=== PATIENT | male | born 1965 | race Caucasian/White ===

== ENCOUNTER 2017-01-01 16:27 | Inpatient (IN) | payer MEDICARE, OTHER ==
[~2017-01-01] VITALS: Ht 177.8 cm; Wt 72.6 kg
--- NOTE | 2017-01-02 19:00 | NUR ---
Admitted patient from [facility] with dx: right ankle pain, sepsis. Patient in a stable condition, with no s/s of distress. Respirations even and unlabored, alert/oriented x 4, able to make needs known. Manifests a pleasant disposition. No complaints of pain at this time. Call light within reach. Kept in a comfortable position. Snacks offered as patient verbalized feeling hungry. Will continue to monitor.
[2017-01-02] MEDS ORDERED: INDOMETHACIN 25 MG CAPSULE PO PRN (22:00)
[2017-01-02] MEDS ORDERED: ZOLPIDEM 5 MG TABLET PO PRN (23:00)
[2017-01-02] MEDS ORDERED: HYDROCODONE/APAP 5-325MG TABLET PO PRN (23:00)
[2017-01-02] MEDS ORDERED: Z GUARD REMEDY PASTE 57 GM TUBE TOP PRN (23:00)
[2017-01-02] MEDS ORDERED: ONDANSETRON 4 MG/2 ML VIAL IV PRN (23:00)
[2017-01-02] MEDS ORDERED: ACETAMINOPHEN 325 MG TABLET PO PRN (23:00)
[2017-01-02] MEDS ORDERED: MAGNESIUM HYDROXIDE 30 ML LIQUID UDC PO PRN (23:00)
[2017-01-02] MEDS ORDERED: INDO25CA49 PO (23:47)
[2017-01-02] MEDS ORDERED: MAG-55 PO (23:57)
[2017-01-02] MEDS ORDERED: LACT10SO PO (23:57)
[2017-01-03] MEDS ORDERED: MAG HYDROX/AL HYDROX/SIMETH 30 ML LIQUID UDC PO PRN
[2017-01-03] MEDS ORDERED: LACTULOSE 20 G/30 ML LIQUID UDC PO PRN
[2017-01-03 06:48] LABS: BASOPHILS % (AUTO) 0.5 % (0.0-2.0); EOSINOPHILS # (AUTO) 0.6 K/uL (0.0-0.7); EOSINOPHILS % (AUTO) 7.6 % (0.0-7.0); HEMATOCRIT 32.2 % (40-50); HEMOGLOBIN 9.8 G/DL (14.0-18.0); LYMPHOCYTES # (AUTO) 2.2 K/UL (0.8-4.8); LYMPHOCYTES % (AUTO) 25.7 % (20.5-51.5); MEAN CORPUSCULAR HEMOGLOBIN 21.1 UUG (27.0-31.0); MEAN CORPUSCULAR HGB CONC 31 g/dL (32.0-37.0); MEAN CORPUSCULAR VOLUME 69.2 FL (82.0-92.0); MONOCYTES # (AUTO) 0.6 K/UL (0.1-1.30); MONOCYTES % (AUTO) 6.9 % (0.0-11.0); NEUTROPHILS % (AUTO) 59.3 % (38.5-71.5); PLATELET COUNT (AUTO) 526 K/UL (150-450); RED BLOOD CELL COUNT(AUTO) 4.65 MIL/UL (4.7-6.1); WHITE BLOOD COUNT (AUTO) 8.4 K/UL (4.0-11.2)
[2017-01-03] MEDS ORDERED: PANTOPRAZOLE SODIUM 40 MG TABLET.DR PO SCH (07:00)
[2017-01-03 07:16] LABS: CREATININE 1.2 mg/dL (0.6-1.3); POTASSIUM 3.8 mmol/L (3.5-5.1)
--- NOTE | 2017-01-03 08:05 | NUR ---
Patient lying in bed, no s/s of distress. V/S WNL. Seen by Dr. Gongora at 1999. Slept well through the night. Admission procedures done. Photos taken of skin assessment, placed in chart. Complaints of slight pain at former IV site. Slight redness noted. Ice pack placed on affected part. Verbalized relief. Frequent checks done. Call light kept within reach. Reminded to call for assistance whenever needed. Endorsed accordingly.
[2017-01-03 08:26] LABS: BASOPHILS % (MANUAL) 2 % (0-2); EOSINOPHILS % (MANUAL) 9 % (0-8); LYMPHOCYTES % (MANUAL) 27 % (20-40); MONOCYTES % (MANUAL) 6 % (2-10); NEUTROPHILS % (MANUAL) 56 % (42-75)
[2017-01-03 08:30] VITALS: BP 126/98
--- NOTE | 2017-01-03 14:30 | NUR ---
Patient wanted to home against medical advice. Risk and benefits was explained to the patient and still opted to go home AMA, signed AMA form. Dr. Gongora informed by Nettie. Assisted with wheelchair to car
[2017-01-03] MEDS ORDERED: DOCUSATE SODIUM 100 MG CAPSULE PO SCH (21:00)
== END 2017-01-03 14:30 | disposition left against medical advice (07) | DRG 603 ==
PROVIDERS: ADMIT Physical Medicine & Rehabilitation Pain Medicine; ATTEND Physical Medicine & Rehabilitation Pain Medicine
DX: L03.115 Cellulitis of right lower limb (principal); M10.9 Gout, unspecified; M21.071 Valgus deformity, not elsewhere classified, right ankle; K44.9 Diaphragmatic hernia without obstruction or gangrene; M06.9 Rheumatoid arthritis, unspecified; S82.891S Other fracture of right lower leg, sequela; X58.XXXS Exposure to other specified factors, sequela; R59.0 Localized enlarged lymph nodes; Z91.19 Patient's noncompliance with other medical treatment and regimen; M25.571 Pain in right ankle and joints of right foot; R29.6 Repeated falls; D64.9 Anemia, unspecified; R53.1 Weakness
CPT/HCPCS: 36415; 83735; 84100; 85025; A4663